=== PATIENT | female | born 1980 | race Hispanic/Latino ===

== ENCOUNTER 2020-03-06 13:12 | Emergency (ER) | payer OTHER, SELFPAY ==
[2020-03-06 13:21] VITALS: BP 116/77; PULSE 83; RESP 16; TEMP 36.4; O2SAT 100
--- NOTE | 2020-03-06 13:55 | ED.GENADULT ---
HPI - General Adult General Chief complaint: Eye Problems Stated complaint: Eye Pain Time Seen by Provider: 03/06/20 13:56 Source: patient and RN notes reviewed Mode of arrival: ambulatory Limitations: no limitations History of Present Illness HPI narrative: 39-year-old female presents with complains of right eye pain, photophobia, tearing, sensation of foreign body in right eye for 1 day. Anna reports that she slept in her contacts last night and symptoms increased throughout the day. Irrigated right eye without relief. Mild redness, clear drainage. Symptoms worsening. Exacerbating factor light. Relieving factors is closing eyes. Denies blurred vision, double vision, or pain of eye with movement. Wears contact lenses. Denies fever or chills. LMP unknown due to IUD in place. Remains active. The patient reports she have not been diagnosed with COVID-19. The patient reports she is not waiting for the results of a COVID-19 lab test. The patient reports she do not have fever, weakness, or fatigue. The patient reports she do not have a new or worsening cough or shortness of breath. Denies chest pain. The patient reports she do not have any rhinorrhea, congestion, sore throat, loss of taste, nausea, vomiting, abdominal pain, and diarrhea. Tolerating po intake well. Denies recent traveling. Denies concerns for COVID-19 or exposures been home with limited outdoor exposure except for essential household needs and return home. At this time, patient is not suspected of having COVID-19. Some parts of this dictation were generated by voice recognition software and may contain typographical and/or grammatical inaccuracies. Related Data Allergies Allergy/AdvReac Type Severity Reaction Status Date / Time No Known Allergies Allergy Verified 09/21/18 11:36 Review of Systems Review of Systems: Narrative: CONSTITUTIONAL: Denies fever, chills, sweats. EYES: Denies visual changes. Complains of RT eye redness and foreign body sensation, clear discharge. ENT: Denies rhinorrhea, congestion, sore throat, otalgia. CARDIOVASCULAR: Denies chest pain, palpitations, edema. RESPIRATORY: Denies dyspnea, wheezing, cough. GASTROINTESTINAL: Denies abdominal pain, nausea, vomiting, diarrhea. SKIN: Denies rash or itching. MUSCULOSKELETAL: Denies acute back pain, joint pain, or myalgia. NEUROLOGIC: Denies numbness or focal weakness. PSYCHIATRIC: Denies anxiety or depression. All systems reviewed & are unremarkable except as noted in HPI and below PMFSH Past Medical History Medical History (Updated 03/07/20 @ 00:00 by Thu Colon) Carpal tunnel syndrome Surgical History Surgical History (Updated 03/06/20 @ 14:04 by ASIF Goode) History of surgery on left wrist Due to carpal tunnel syndrome Family History Family History (Updated 03/06/20 @ 14:05 by ASIF Goode) Father Unknown family medical history Mother Hypertension Diabetes mellitus Social History Social History (Updated 03/06/20 @ 14:06 by ASIF Goode) Years smoked: 10 Smoking status: Light tobacco smoker Second hand tobacco smoke exposure: No Alcohol intake: current Substance use: never Living arrangements: with family Occupation/Education: other Additional occupation/education comments: Homemaker Gender identity (if verbalized by the patient): Female Sexual Orientation (if Verbalized by the Patient): Straight or Heterosexual Comments At time of signature, I have reviewed and agree with nursing past medical, surgical, social, and family history. Please see nursing chart for further information. There is no relevant family history pertinent to the presenting complaint. Exam Narrative: Exam Narrative: GENERAL: This is a well-nourished, well-developed patient, in no apparent distress. HEAD: normocephalic, atraumatic. EYES: PERRL. Sclera clear/white to LT eye only. RT eye sclera gladis and c
--- NOTE | 2020-03-06 14:06 | PC.NURSE ---
eye exam set up at bedside. eye chart done.
== END 2020-03-06 14:20 | disposition home or self-care (01) ==
PROVIDERS: Emergency Provider Nurse Practitioner Family; PCP Nurse Practitioner Family
DX: S05.01XA Injury of conjunctiva and corneal abrasion without foreign body, right eye, initial encounter (principal); X58.XXXA Exposure to other specified factors, initial encounter; F17.200 Nicotine dependence, unspecified, uncomplicated
CPT/HCPCS: 99213; A9270; G0463

== ENCOUNTER 2020-09-19 19:01 | Emergency (ER) | payer OTHER, SELFPAY ==
--- NOTE | 2020-09-19 10:34 | ECG_ITS ---
Measurements Intervals [place] Rate: 67 P: 24 GA: 135 QRS: -1 QRSD: 91 T: 7 QT: 407 QTc: 433 Interpretive Statements SINUS RHYTHM BORDERLINE T WAVE ABNORMALITY- ANT/INF LEADS BASELINE ARTIFACT- I, II, AVR, AVL, AVF BORDERLINE ECG Electronically Signed On 09-25-2020 11:40:54 CDT by William Hayes D.O.
[2020-09-19 19:17] VITALS: BP 146/102; PULSE 75; RESP 16; TEMP 36.1; O2SAT 99
--- NOTE | 2020-09-19 19:18 | ED.SOB ---
HPI - SOB/Dyspnea General Chief Complaint: Chest Pain Stated Complaint: High Blood Pressure,Chest Pain Time Seen by Provider: 09/19/20 19:18 Source: patient Mode of arrival: ambulatory Limitations: no limitations History of Present Illness HPI Narrative: Vikram Shane is a 40 yo female with a PMH of pre eclampsia who comes to [facility] complaining of chest pain-he told nurse she thought she was having a heart attack. 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 Now she is very verbal, not ill-appearing. Had Covid last July 2020. She has a primary care physician Related Data Allergies Allergy/AdvReac Type Severity Reaction Status Date / Time No Known Allergies Allergy Verified 09/19/20 19:18 Review of Systems Review of Systems: Narrative: CONSTITUTIONAL: Denies fever, chills, sweats. EYES: Denies visual changes, redness, discharge. ENT: Denies rhinorrhea, congestion, sore throat, otalgia. CARDIOVASCULAR: Has chest pain, no palpitations, edema. RESPIRATORY: Denies dyspnea, wheezing, cough GASTROINTESTINAL: Denies abdominal pain, nausea, vomiting, diarrhea. GENITOURINARY: Denies dysuria, hematuria, abnormal discharge SKIN: Denies rash or itching. NEUROLOGIC: Denies numbness, or focal weakness. PSYCHIATRIC: Denies anxiety or depression. [facility] Past Medical History Medical History Carpal tunnel syndrome Preeclampsia Surgical History Surgical History History of surgery on left wrist Due to carpal tunnel syndrome Family History Family History Father Unknown family medical history Mother Hypertension Diabetes mellitus Social History Social History (Updated 03/06/20 @ 14:06 by ASIF Goode) Years smoked: 10 Smoking status: Light tobacco smoker Second hand tobacco smoke exposure: No Alcohol intake: current Substance use: never Additional occupation/education comments: Homemaker Gender identity (if verbalized by the patient): Female Comments At time of signature, I agree with nursing past medical, surgical, social and family history. There is no relevant family history pertinent to the presenting complaint. Blood pressure is elevated today on at this visit with no known hypertension diagnosis Exam Narrative: Exam Narrative: GENERAL: This is a well-nourished, well-developed patient, in mild distress. HEAD: normocephalic, atraumatic. EYES: PERRL. Sclera clear/white. Vision is grossly intact. EARS: External ears normal, auditory canals clear and without drainage, TMs normal without perforation. Hearing grossly intact. NOSE: External nose normal without nasal discharge, nares without redness, no rhinorrhea. THROAT: Mucous membranes moist, posterior pharynx NECK: Neck supple, non-tender CARDIOVASCULAR: Regular rate and rhythm without murmurs, gallops, or rubs. States has chest pain that rated 3 out of 10; area of the left midsternal about 5 x 6 in area is not reproducible with direct pressure but with lifting arms posteriorly are going to the side she has tightness RESPIRATORY: Clear to auscultation. Breath sounds equal bilaterally. No wheezes, rales, or rhonchi. GASTROINTESTINAL: Abdomen soft, non-tender, SKIN: warm, intact with no suspicious lesions or rash, good texture and turgor. NEURO: awake, alert, and oriented to person, place and time. There were no obvious focal neurologic abnormalities. Steady gait EXTREMITIES: Normal range of motion. BACK: Nontender without deformity Course Course Emergency Course: Patient came here with chest discomfort
[2020-09-19 19:46] VITALS: BP 123/73
== END 2020-09-19 19:46 | disposition home or self-care (01) ==
PROVIDERS: Emergency Provider Nurse Practitioner; PCP Nurse Practitioner Family
DX: R07.89 Other chest pain (principal); F17.200 Nicotine dependence, unspecified, uncomplicated; Z86.16 Personal history of COVID-19
CPT/HCPCS: 93005; 99213; G0463

== ENCOUNTER 2020-10-28 12:39 | Outpatient (CLI) | payer OTHER, SELFPAY ==
--- NOTE | 2020-10-28 | ECHO_ITS ---
Patient Info Name: Vikram Shane Age: 40 years : 1980 Gender: Female Ht: 62 in Wt: 170 lbs BSA: 1.87 m2 HR: 69 bpm BP: 131 / 91 mmHg Heart Rhythm: Sinus Rhythm Exam Date: 10/28/2020 1:22 PM Exam Location: [facility] Pul[facility] Patient Status: Outpatient Admit Date: 10/28/2020 Staff Ordering Physician: Daniel, Yeimi RONQUILLO Sample Sewer: Harish Fraire, SHAILESH, RT Attending Provider: Daniel, Yeimi RONQUILLO Exam Type: CA echo doppler color flow Study Info Indications R07.9 - Chest pain, unspecified Complete two-dimensional, color flow and Doppler transthoracic echocardiogram is performed. Strain analysis performed. Summary 1. Complete two-dimensional, color flow and Doppler transthoracic echocardiogram is performed. 2. Strain analysis performed. 3. Global longitudinal strain is borderline at -16 %. 4. Left ventricular chamber dimension is normal. 5. Left ventricular systolic function is normal, estimated at 60-65%. 6. There is no increased left ventricular wall thickness. 7. The left ventricular diastolic function is normal. 8. There is mild mitral valve regurgitation. 9. There is mild tricuspid valve regurgitation. Left Ventricle Global longitudinal strain is borderline at -16 %. Left ventricular chamber dimension is normal. Left ventricular systolic function is normal, estimated at 60-65%. There is no increased left ventricular wall thickness. The left ventricular diastolic function is normal. Right Ventricle Right ventricular chamber dimension is normal. Right ventricular systolic function is normal. Left Atria Left atrial chamber dimension is normal. Right Atria Right atrial chamber dimension is normal. Atrial Septum Intact interatrial septum visualized by color flow imaging. Aortic Valve The aortic valve is probable trileaflet. There is no aortic valve sclerosis. There is no aortic valve stenosis. There is trace aortic valve regurgitation. Pulmonic Valve The pulmonic valve is normal. There is no pulmonic valve stenosis. There is trace pulmonic regurgitation. Mitral Valve The mitral valve has normal leaflets. There is no mitral valve stenosis. There is mild mitral valve regurgitation. Tricuspid Valve The tricuspid valve leaflets are normal. There is no significant tricuspid valve stenosis. There is mild tricuspid valve regurgitation. No pulmonary hypertension, estimated pulmonary arterial systolic pressure is 27 mmHg. Pericardium/Pleural The pericardium appears normal. There is no pericardial effusion. Inferior Vena Cava Normal inferior vena cava with <50% collapse upon inspiration consistent with elevated right atrial pressure, 10 mmHg. Aorta The aortic root size at the sinus of Valsalva is normal. The prox ascending aorta size is normal. Left Ventricular Outflow Tract Name Value Normal LVOT 2D LVOT Diameter 1.9 cm LVOT Doppler LVOT Peak Gradient 5 mmHg LVOT Mean Gradient 3 mmHg LVOT VTI 22 cm LVOT VTI/AV VTI Ratio 0.8
== END 2020-10-28 12:40 | disposition home or self-care (01) ==
PROVIDERS: PCP Nurse Practitioner Family; Visit Provider Nurse Practitioner Family
DX: R07.89 Other chest pain (principal); I36.1 Nonrheumatic tricuspid (valve) insufficiency; I34.0 Nonrheumatic mitral (valve) insufficiency
CPT/HCPCS: 93306

== ENCOUNTER 2022-10-13 16:13 | Emergency (ER) | payer OTHER, SELFPAY ==
[2022-10-13 16:20] VITALS: BP 128/81; PULSE 76; RESP 16; TEMP 36.9; O2SAT 100
--- NOTE | 2022-10-13 16:31 | ED.EAR ---
HPI - Ear Problem General Chief complaint: Ear Stated complaint: Left Ear Irritation Time Seen by Provider: 10/13/22 16:32 Source: patient Mode of arrival: ambulatory Limitations: no limitations History of Present Illness HPI Narrative: 42 y/o female presented for c/o left ear pressure and decreased hearing worsening over the past 2 days. Endorses tinnitus earlier today. States the ear feels full of water. She denies associated dizziness, ear drainage, nausea vomiting, fevers or chills. Not taking anything for symptoms. MD Complaint: ear pain Related Data Home Medications Medication Instructions Recorded Confirmed levonorgestrel 21 mcg/24 hours (8 1 device intrauterine ONCE 10/13/22 10/13/22 yrs) 52 mg intrauterine device (Mirena) Allergies Allergy/AdvReac Type Severity Reaction Status Date / Time No Known Allergies Allergy Verified 10/13/22 16:23 Review of Systems Review of Systems: CONSTITUTIONAL: Denies malaise, chills, or fever. EYES: Denies visual changes, redness, or discharge. ENT: Denies rhinorrhea, congestion, sinus pain, and sore throat. Reports ear pain CARDIOVASCULAR: Denies chest pain, palpitations, or edema. RESPIRATORY: Denies cough or dyspnea. GASTROINTESTINAL: Denies abdominal pain, nausea, vomiting, diarrhea SKIN: Denies rash or itching. MUSCULOSKELETAL: Denies myalgia. NEUROLOGIC: Denies headache. All systems reviewed & are unremarkable except as noted in HPI and below PMFSH Past Medical History Medical History Carpal tunnel syndrome Preeclampsia Surgical History Surgical History History of surgery on left wrist Due to carpal tunnel syndrome Family History Family History Father Unknown family medical history Mother Hypertension Diabetes mellitus Social History Social History Years smoked: 10 Smoking status: Light tobacco smoker Second hand tobacco smoke exposure: No Alcohol intake: current Substance use: never Living arrangements: with family Occupation/Education: other Additional occupation/education comments: Homemaker Gender identity (if verbalized by the patient): Female Sexual Orientation (if Verbalized by the Patient): Straight or Heterosexual Comments At time of signature, agree with nursing past medical, surgical, social and family history. There is no relevant family history pertinent to the presenting complaint Exam Narrative: GENERAL: Well-appearing, well-nourished, and in no acute distress. HEAD: Normocephalic EYES: PERRLA, conjunctivae clear ENT: Nares clear. Mucous membranes moist. Right TM pearly miguel with dull light reflex; left TM erythematous, purulent fluid no tragal tenderness. Oropharynx not erythematous without lesions. no drooling, no hoarseness, no trismus, uvula midline. NECK: Supple. No lymphadenopathy CHEST: Clear to auscultation, breath sounds equal. No wheezing, rhonchi, rales, or stridor. No respiratory distress, speaks in full sentences. HEART: Regular rate and rhythm. No murmur heard. SKIN: Warm, dry, no rash. NEURO: Alert and oriented x3. PSYCH: Normal mood and affect Course Course Emergency Course: Patient is aware of diagnosis, understands and agrees to treatment plan. Anticipatory guidance given. Patient agrees to follow-up as directed and is aware of reasons to seek care at the emergency department. Portions of this record may have been created with voice recognition software Level of Care: Express Care Visit Vital Signs Vital signs: Vital Signs Temperature 98.5 F 10/13/22 16:20 Pulse Rate 76 10/13/22 16:20 Respiratory Rate 16 10/13/22 16:20 Blood Pressure 128/81 10/13/22 16:20 Pulse Oximetry 100 10/13/22 16:20 Oxygen Delivery Room Air
== END 2022-10-13 16:40 | disposition home or self-care (01) ==
PROVIDERS: Emergency Provider Nurse Practitioner Family; PCP Nurse Practitioner Family
DX: H66.92 Otitis media, unspecified, left ear (principal)
CPT/HCPCS: 99213; G0463

== ENCOUNTER 2024-06-22 09:52 | Outpatient (CLI) | payer OTHER, SELFPAY ==
--- OUTSIDE RECORDS SUMMARY | 2024-06-22 10:32 | XMS_ITS | Clinical Summary ---
Author Organization [facility] Address [address] [place] [address] Care Team Providers Care Senior Logistics Manager Name Role Phone Unavailable Primary Care Provider Unavailabl e Social History Tobacco Use Types Packs/Day Years Used Date Smoking Tobacco: Never Assessed Comments Unknown Sex and Gender Information Value Date Recorded Sex Assigned at Not on file Legal Sex Female 8:29 AM CDT Gender Identity Not on file Sexual Orientation Not on file Plan of Treatment Health Maintenance Due Date Last Done Comments Hepatitis C Virus (HCV) Screening 1980 Hepatitis B Immunization (2 of 3 - 3-dose series) 01/26/1997 12/29/1996 Pap Smear 2002 Cervical Cancer Screening (CCS) 05/18/2011 HPV/Cotest 05/18/2011 Discussion re Starting/Frequency of Mammograms 2021 Influenza Immunization (#1) 2023 12/15/2016 SARS-COV-2 Immunization ( season) 2023 Respiratory Syncytial Virus (RSV) Immunization (Adult) (1 - 1-dose 75+ series) 2056 DTaP/Tdap/Td Immunization Discontinued 2016, 02/06/2009, 12/29/1996 TdaP Immunization Completed 08/14/2016, 02/06/2009 Meningococcal Immunization (ACWY) Aged Out No longer eligible based on patient's age to complete this topic Pneumococcal Immunization Combined Aged Out No longer eligible based on patient's age to complete this topic Rotavirus Immunization Aged Out No lo nger eligible based on patient's age to complete this topic
--- OUTSIDE RECORDS SUMMARY | 2024-06-22 10:32 | XMS_ITS | Encounter Summary ---
Author Organization [facility] Address [address] [place] [address] Phone Care Team Providers Care Sales Operations Name Role Phone Yeimi Sanchez NP Primary Care Provider [phone] Unknown, Notinfile Unavailable Unavailable Encounter Details Date Type Department Care Team (Late st Contact Info) Description 12/15/2020 Ophth Exam [facility] [address] [place] [address] 1st [place] [id number] Juan Manuel Ayers MD PhD [address] [place] [address] [facility] [place] [phone] [place] [address] Social History Tobacco Use Types Packs/Day Years Used Date Smoking Tobacco: Every Day Smokeless Tobacco: Current Alcohol Use Standard Drinks/Week Comments Not Currently 0 (1 standard drink = 0.6 oz pur e alcohol) Comments No Sex and Gender Information Value Date Recorded Sex Assigned at Not on file Legal Sex Female 8:09 PM SKEIN DYER Gender Identity Not on file Sexual Orientation Not on file documented as of this encounter Plan of Treatment Not on file documented as of this encounter Visit Diagnoses Not on filedocumented in this encounter Additional Health Concerns Infection Onset Date Last Indicated Resolved Time COVID: Suspected 04/13/2024 04/13/2024 04/14/2024 3:07 AM SKEIN DYER COVID: Suspected 05/11/2024 05/11/2024 05/11/2024 10:52 PM SKEIN DYER documented as of this encounter Eye Exam Visual Acuity Right eye Left eye Near sc CF 1' 20/20 Tonometry (Tonopen, 8:01 PM) Right eye Left eye Pressure 20 18 Pupils Dark Light Shape React APD Right eye 4 2 Round Brisk None Left eye 4 2 Round Brisk None Visual Farmer Right eye Left eye Restrictions Total superior tempo ral, inferior temporal, superior nasal, inferior nasal deficiencies Extraocular Movement Right eye Left eye Full Full External Exam Right eye Left eye External Normal Slit Lamp Exam Right eye Left eye Lids/Lashes reactive ptosis Normal Conjunctiva/Sclera 2+ injection White and ivonne et Cornea no epi defects, no s taining, stromal haze, single peripheral superficial infiltrate superonasally, MCE Clear Anterior Chamber hazy view but deep a nd appears quiet, no hypopyon Deep and quiet Iris Round and reactive Round and caro ctive Lens hazy view Clear Vitreous hazy view Normal Fundus Exam Right eye Left eye Disc no view Normal Macula Normal Vessels Normal Periphery Normal Care Teams Sales Operations Relationship Specialty Start Date End Date Yeimi Sanchez NP PCP - General 12/15/20 Unknown, Notinfile 12/15/20 documented as of this encounter
--- OUTSIDE RECORDS SUMMARY | 2024-06-22 10:33 | XMS_ITS | Clinical Summary ---
Author Organization [facility] al Address [address] [place] [address] Care Team Providers Care Quill Winder Name Role Phone Yeimi Sanchez NP Primary Care Provider [phone] Unknown, Notinfile Unavailable Unavailable Allergies No known active allergies Medications naproxen (NAPROSYN) 500 mg tablet Take 1 tablet (500 mg total) by mouth 2 (two) times a day Take with food. 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 No clear epi defect. Haze reduced in size since last visit, but not completely resolved. Rx'd Valtrex again 1g TID PO. Will call should have any side effects or issues obtaining. Will use Tobradex TID-QID right eye (OD). Educated on benefit of trying new contact lens brand, as there is extensive peripheral KNV. Currently is using King lenses. Will schedule f/u with cornea in coming weeks, sooner prn Assessment & Plan (12/26/2020 6:17 PM CDT): Initially presented in ER on 12/15/20 with central stromal haze, single peripheral infiltrate superonasally with no staining. AC with tr WBC. Thought to be CTL associated sterile infiltrate. Started on tobradex QID OD. Today has continued to have symptomatic improvement. Exam with roughly 1.5mm x 4 mm area of central stromal haze with 70%NST, no nuha edema. Superonasal 0.8mmx0.8mm superficial anterior stromal scar, no stain. Most likely represents contact lens keratopathy. Lower on ddx is herpetic interstitial keratitis, will obtain HSV/VZV PCR and cover with valtrex given significant central stromal haze and low side effect profile of valtrex. Plan: -Counseled patient to continue refraining from contact lens wear and to discard her contact lens case, solution, and lens and replace -HSV PCR ocular surface swab collected today -Start Valtrex 1 g TID. Can consider discontinuing at next visit, pending HSV/VZV PCR results and exam -Continue TD QID OD RTC 1-2 weeks Assessment & Plan (12/23/2020 5:07 PM CDT): -- no epi defects, no staining, stromal haze centrally, single peripheral superficial infiltrate superonasally with no staining. AC with trace white cell -- Likely contact-lens associated sterile infiltrate vs resolving prior ulcer -- continue Tobradex QID OD -- week of 12/23 for repeat anterior exam Encounters Date Type Department Care Team Description 05/12/2024 1:15 AM CREDIT PRODUCT ANALYST - 05/12/2024 4:59 AM [facility] Emergency [facility] Emergency Department [address] [place] [address] Phuong Molina MD Shortness of breath (Primary Dx); Palpitations; Chest pain, unspecified type Discharge Disposition: Discharge to home or self care 04/13/2024 7:48 PM CREDIT PRODUCT ANALYST - 04/14/2024 3:02 AM [facility] Emergency [address] [address] Discharge Disposition: Left without being seen from Last 3 Months Family History Medical History Relation Name Comments No Known Problems Father No Known Problems Mother Relation Name Status Comments Father Mother Social History Tobacco Use Types Packs/Day Years Used Date Smoking Tobacco: Every Day Smokeless Tobacco: Current Alcohol Use Standard Drinks/Week Comments Not Currently 0 (1 standard drink = 0.6 oz pur e alcohol) Personal Safety Answer Date Recorded Have you ever been in or are you currently in a harmful physical or emotional relationship or is someone making you feel afraid or unsafe? Denies 05/11/2024 Comments No Sex and Gender Information Value Date Recorded Sex Assigned at Not on file Legal Sex Female 8:09 PM CREDIT PRODUCT ANALYST Gender Identity Not on file Sexual Orientation Not on file Obstetrics History Last Filed Vital Signs Vital Sign Reading Time Taken Comments Blood Pressure 127/82 05/12/2024 2:25 AM CREDIT PRODUCT ANALYST Pulse 57 05/12/2024 2:25 AM CREDIT PRODUCT ANALYST Temperature 36.7 C (98 F) 05/11/2024 10:47 PM CREDIT PRODUCT ANALYST Respiratory Rate 16 05/12/2024 2:25 AM CREDIT PRODUCT ANALYST Oxygen Saturation 97% 05/12/2024 2:25 AM CREDIT PRODUCT ANALYST Inhaled Oxygen Concentration - - Weight 72.1 kg (159 lb) 05/11/2024 8:59 PM CREDIT PRODUCT ANALYST Height 158.8 cm (5' 2.5 ) 05/11/2024 8:59 PM CREDIT PRODUCT ANALYST Body Mass Index 28.62 05/11/2024 8:59 PM CREDIT PRODUCT ANALYST Plan of Treatment Health Maintenance Due Date Last Done Comments Breast Cancer Screening-Mammogram 1981 Cervical Cancer Screening 1981 Depression Screening 1981 Hepatitis C Screening 1981 Varicella Vaccines (1 of 2 - 13+ 2-dose series) 1994 Regular Well Visit/Exam 18-64 05/18/1999 Pneumococcal vaccine <65 (1 of 2 - PCV) 2000 Influenza Vaccine (Season Ended) 2024 12/15/2016 DTaP/Tdap/Td Vaccine (4 - Td or Tdap) 08/14/2026 08/14/2016, 02/06/2009, 12/29/1996 Hepatitis B Screening Completed 12/29/1996 HPV Vaccines Aged Out No longer eligi ble based on patient's age to complete this topic Procedures Procedure Name Priority Date/Time Associated Diagnosis Comments D-DIMER, QUANTITATIVE STAT 05/12/2024 3:37 AM CREDIT PRODUCT ANALYST TROPONIN I HIGH-SENSITIVITY 4-HOUR Timed 05/12/2024 1:16 AM CREDIT PRODUCT ANALYST ECG 12-LEAD STAT 05/11/2024 9:31 PM CREDIT PRODUCT ANALYST XR CHEST PA LATERAL 2 VIEWS ED 05/11/2024 9:22 PM CREDIT PRODUCT ANALYST EGFR STAT 05/11/2024 9:15 PM CREDIT PRODUCT ANALYST DIFFERENTIAL AUTO STAT 05/11/2024 9:1 5 PM CREDIT PRODUCT ANALYST TROPONIN I HIGH-SENSITIVITY SERIES (BASELINE, 2HR, 4HR, 6HR) STAT 05/11/2024 9:15 PM CREDIT PRODUCT ANALYST COMPREHENSIVE METABOLIC PANEL STAT 05/11/2024 9:15 PM CREDIT PRODUCT ANALYST CBC WITH AUTO DIFFERENTIAL STAT 05/11/2024 9:15 PM CREDIT PRODUCT ANALYST RESPIRATORY PATHOGEN PANEL STAT 05/11/2024 9:15 PM CREDIT PRODUCT ANALYST TROPONIN T HIGH-SENSITIVITY 2-HOUR Timed 04/13/2024 10:32 PM CREDIT PRODUCT ANALYST XR CHEST 1 VIEW ED 04/13/2024 8:55 PM CREDIT PRODUCT ANALYST URINALYSIS AND REFLEX TO MICROSCOPIC AND CULTURE STAT 04/13/2024 8:49 PM CREDIT PRODUCT ANALYST POCT HCG, URINE Routine 04/13/2024 8:48 PM CREDIT PRODUCT ANALYST ECG 12-LEAD STAT 04/13/2024 8:39 PM CREDIT PRODUCT ANALYST EGFR STAT 04/13/2024 8:33 PM CREDIT PRODUCT ANALYST DIFFERENTIAL AUTO STAT 04/13/2024 8:3 3 PM CREDIT PRODUCT ANALYST D-DIMER, QUANTITATIVE STAT 04/13/2024 8:33 PM CREDIT PRODUCT ANALYST TROPONIN T HIGH-SENSITIVITY SERIES (BASELINE, 2HR, 4HR, 6HR) STAT 04/13/2024 8:33 PM CREDIT PRODUCT ANALYST CBC WITH AUTO DIFFERENTIAL STAT 04/13/2024 8:33 PM CREDIT PRODUCT ANALYST COMPREHENSIVE METABOLIC PANEL STAT 04/13/2024 8:33 PM CREDIT PRODUCT ANALYST from Last 3 Months Results * D-dimer, quantitative (05/12/2024 3:37 AM CREDIT PRODUCT ANALYST) D-Dimer 411 <=499 ng/mL FEU Comment: Interpretive data FDA approved the D-dimer, in conjunction with a low or moderate pretest probability score, to exclude venous thromboembolic events (VTE) (PE and DVT) in outpatients when the D-dimer result is < 500 ng/ml FEU. Evidence supports using an age-adjusted D-dimer cut-off for outpatients older than 50 (age x 10) to improve specificity without sacrificing sensitivity. Example: age 68, VTE cut-off 680 ng/ml FEU. References; Schouten HT et al. Brit Med J. 2013;346:f2492. Claudia et al. Annals Int Med. 2015;163:701-11. Current interpretive data was last revised on 2019. Blood 05/12/2024 3:37 AM CREDIT PRODUCT ANALYST 05/12/2024 4:12 AM CREDIT PRODUCT ANALYST us Marie Larose MD LAB BLOOD ORDERABLES Damari to Result [facility] One [facility] [place] [address] * Troponin I high-sensitivity 4-hour (05/12/2024 1:16 AM CREDIT PRODUCT ANALYST) Pathologist [facility] Trop I hs <4 <=17 ng/L Comment: Interpretive Data For further hscTnI resources including the diagnostic algorithm and an aid in interpretation, copy and paste this link: https://bjhlab.testcatalog.org/show/hsTrop-1 Current Interpretive Data last revised 2019. Trop I hs delta 0 ng/L [facility] Trop I hs interp Insignificant [facility] Blood 05/12/2024 1:16 AM CREDIT PRODUCT ANALYST 05/12/2024 1:24 AM CREDIT PRODUCT ANALYST us Keith Mccoy MD LAB BLOOD ORDERABLES Final Resul t Performing Organization Address [facility] Co de Phone Number [facility] One [facility] [place] [address] * ECG 12-LEAD (05/11/2024 9:31 PM CREDIT PRODUCT ANALYST) Narrative [facility] - 05/11/2024 9:31 PM CREDIT PRODUCT ANALYST Keith Mccoy MD 05/11/2024 9:32 PM ECG 12 lead Date/Time: 05/11/2024 9:31 PM Performed by: Keith Mccoy MD Authorized by: Keith Mccoy MD Rate: ECG rate: 89 ECG rate assessment: normal Rhythm: Rhythm: sinus rhythm Ectopy: Ectopy: none QRS: QRS axis: Normal QRS intervals: Normal Conduction: Conduction: normal ST segments: ST segments: Normal T waves: T waves: inverted Inverted: V3 Interpretation: Interpretation: non-specific Recommended Follow-up: Recommended follow up: further workup in the ED Procedure Note Keith Mccoy MD - 05/11/2024 9:10 PM CST Procedure ECG 12 lead Date/Time: 05/11/2024 9:31 PM Performed by: Keith Mccoy MD Authorized by: Keith Mccoy MD Rate: ECG rate: 89 ECG rate assessment: normal Rhythm: Rhythm: sinus rhythm Ectopy: Ectopy: none QRS: QRS axis: Normal QRS intervals: Normal Conduction: Conduction: normal ST segments: ST segments: Normal T waves: T waves: inverted Inverted: V3 Interpretation: Interpretation: non-specific Recommended Follow-up: Recommended follow up: further workup in the ED Keith Mccoy MD 05/11/242131 us Phuong Molina MD ECG ORDERABLES Final Resul t Performing Organization Address [facility]/ZIP Co de Phone Number [facility] * XR Chest Pa Lateral 2 Views (05/11/2024 9:22 PM CREDIT PRODUCT ANALYST) Anatomical Region Laterality Modality Body, Chest N/A Computed Radiogr aphy 05/11/2024 9:27 PM CREDIT PRODUCT ANALYST Impressions 05/12/2024 7:25 PM CREDIT PRODUCT ANALYST Prescribed compare to 08/25/2024 No pneumothorax or pleural effusions. The cardiomediastinal silhouette is within limits of normal. Lungs are clear. Dictated by: Mary Jo Ahmadi MD The radiology attending physician has personally reviewed this study, and had reviewed and/or edited this written report and agrees with it. Electronically signed by: Mj Graham M.D. Narrative 05/12/2024 7:25 PM CREDIT PRODUCT ANALYST EXAMINATION: 2 view chest radiograph Procedure Note Mj Graham MD PhD - 05/12/2024 EXAMINATION: 2 view chest radiograph IMPRESSION: Prescribed compare to 08/25/2024 No pneumothorax or pleural effusions. The cardiomediastinal silhouette is within limits of normal. Lungs are clear. Dictated by: Mary Jo Ahmadi MD The radiology attending physician has personally reviewed this study, and had reviewed and/or edited this written report and agrees with it. Electronically signed by: Mj Graham M.D. us Phuong Molina MD IMG XR PROCEDURES Final Res ult * Troponin I high-sensitivity series (baseline, 2hr, 4hr, 6hr) (05/11/2024 9:15 PM CREDIT PRODUCT ANALYST) Trop I hs <4 <=17 ng/L Comment: Interpretive Data For further hscTnI resources including the diagnostic algorithm and an aid in interpretation, copy and paste this link: https://bjhlab.testcatalog.org/show/hsTrop-1 Current Interpretive Data last revised 2019. Blood 05/11/2024 9:15 PM CREDIT PRODUCT ANALYST 05/11/2024 9:26 PM CREDIT PRODUCT ANALYST us Phuong Molina MD LAB BLOOD ORDERABLES Final Result [facility] [place] [address] * eGFR (05/11/2024 9:15 PM CREDIT PRODUCT ANALYST) Pathologist [facility] eGFR >90 >=60 mL/min/1. 73 m2 Comment: Interpretive Data Reference Interval Normal >/= 90 mL/min/1.73m2 Mildly decreased* 60 - 89 mL/min/1.73m2 Mildly to moderately decreased 45 - 59 mL/min/1.73m2 Moderately to severely decreased 30 - 44 mL/min/1.73m2 Severely decreased 15 - 29 mL/min/1.73m2 Kidney Failure < 15 mL/min/1.73m2 *Relative to young adult level Estimated glomerular filtration rate is determined by the 2020 CKD-EPI equation recommended by the National Kidney Foundation (A Unifying Approach to GFR Estimation: Recommendations of the NKF-ASK Task Force on Reassessing the Inclusion of Race in Diagnosing Kidney Disease, JASN 2020). The CKD-EPI equation should not be used for patients with unstable renal function and has not been validated in children and those over 70. Current interpretive data was last reviewed 2021. Blood 05/11/2024 9:15 PM CREDIT PRODUCT ANALYST 05/11/2024 9:26 PM CREDIT PRODUCT ANALYST us Phuong Molina MD LAB BLOOD ORDERABLES Final Result [facility] Department [place] [address] * (ABNORMAL) Differential, auto (05/11/2024 9:15 PM CREDIT PRODUCT ANALYST) Pathologist [facility] Neutrophil abs 8.0(H) 1.5 - 6.5 K/cumm Imm gran abs 0.0 0.0 - 0.1 K/cumm [facility] Lymphocyte abs 0.5(L) 0.8 - 3.3 K/cumm [facility] Monocyte abs 0.1(L) 0.2 - 0.8 K/cumm [facility] Eosinophil abs 0.0 0.0 - 0.5 K/cumm [facility] Basophil abs 0.0 0.0 - 0.1 K/cumm [facility] Neutrophil pct 93.2 % [facility] Comment: Interpretive Data Percent cell count reference ranges are not reported, since discordance with absolute values may lead to misinterpretation of CBC data. Current Interpretive Data was last revised on 2017. Imm gran pct 0.3 % [facility] Comment: Interpretive Data Percent cell count reference ranges are not reported, since discordance with absolute values may lead to misinterpretation of CBC data. Current Interpretive Data was last revised on 2017. Lymphocyte pct 5.6 % [facility] Comment: Interpretive Data Percent cell count reference ranges are not reported, since discordance with absolute values may lead to misinterpretation of CBC data. Current Interpretive Data was last revised on 2017. Monocyte pct 0.8 % [facility] Comment: Interpretive Data Percent cell count reference ranges are not reported, since discordance with absolute values may lead to misinterpretation of CBC data. Current Interpretive Data was last revised on 2017. Eosinophil pct 0.0 % [facility] Comment: Interpretive Data Percent cell count reference ranges are not reported, since discordance with absolute values may lead to misinterpretation of CBC data. Current Interpretive Data was last revised on 2017. Basophil pct 0.1 % [facility] Comment: Interpretive Data Percent cell count reference ranges are not reported, since discordance with absolute values may lead to misinterpretation of CBC data. Current Interpretive Data was last revised on 2017. Blood 05/11/2024 9:15 PM CREDIT PRODUCT ANALYST 05/11/2024 9:26 PM CREDIT PRODUCT ANALYST us Phuong Molina MD LAB BLOOD ORDERABLES Final Result [facility] One [facility] Department [place] [address] * Respiratory pathogen panel Nasopharyngeal (05/11/2024 9:15 PM CREDIT PRODUCT ANALYST) Influenza A RNA Not Detected Not Detected Influenza B RNA Not Detected Not Detected [facility] RSV RNA Not Detected Not Detected [facility] COVID-19 RNA Not Detected Not Detected [facility] Coronavirus 229E RNA Not Detected Not Detected [facility] Coronavirus HKU1 RNA Not Detected Not Detected [facility] Coronavirus NL63 RNA Not Detected Not Detected [facility] Coronavirus OC43 RNA Not Detected Not Detected [facility] Adenovirus DNA Not Detected Not Detected [facility] Metapneumovirus RNA Not Detected Not Detected [facility] Rhinovirus/Enterov irus RNA Not Detected Not Detected [facility] Parainfluenza 1 RNA Not Detected Not Detected [facility] Parainfluenza 2 RNA Not Detected Not Detected [facility] Parainfluenza 3 RNA Not Detected Not Detected [facility] Parainfluenza 4 RNA Not Detected Not Detected [facility] B. pertussis DNA Not Detected Not Detected [facility] B. parapertussis DNA Not Detected Not Detected [facility] C. pneumoniae DNA Not Detected Not Detected [facility] M. pneumoniae DNA Not Detected Not Detected [facility] Nasopharyngeal 05/11/2024 9: 15 PM CREDIT PRODUCT ANALYST 05/11/2024 9:30 PM CREDIT PRODUCT ANALYST Narrative [facility] - 05/11/2024 10:51 PM CREDIT PRODUCT ANALYST Is the Patient experiencing symptoms consistent with COVID?->Yes Surveillance testing for transplant patient?->No Interpretive Data The [employer] FilmArray Respiratory Panel (RP2.1) assay is a multiplexed real-time PCR based nucleic acid test capable of simultaneous qualitative detection and identification of multiple respiratory viral and bacterial nucleic acids, including SARS Coronavirus 2 (the causative agent of COVID-19). The following bacteria, viruses and virus subtypes can be identified using the FilmArray RP2.1 assay: Bordetella pertussis, Bordetella parapertussis, Chlamydia pneumoniae, Mycoplasma pneumoniae, Adenovirus, SARS Coronavirus 2, seasonal coronaviruses (Coronavirus HKU1, Coronavirus NL63, Coronavirus 229E, and Coronavirus OC43), Influenza A, Influenza A subtype H1, Influenza A subtype H3, Influenza A subtype 2009 H1, Influenza B, Metapneumovirus, Parainfluenza 1, Parainfluenza 2, Parainfluenza 3, Parainfluenza 4, RSV, Rhinovirus/Enterovirus. Due to the genetic similarity between human Rhinovirus and Enterovirus, the FilmArray RP2.1 assay cannot reliably differentiate them. Coronavirus OC43 may cross-react with some isolates of Coronavirus HKU1. A dual positive result may be due to cross-reactivity or may indicate a co- infection. The detection and identification of specific viral and bacterial nucleic acids from individuals exhibiting signs and symptoms of a respiratory infection aids in the diagnosis of respiratory infection if used in conjunction with other clinical and epidemiological information. The results of this test should not be used as the sole basis for diagnosis, treatment, or other management decisions. Negative results in the setting of a respiratory illness may be due to infection with pathogens that are not detected by this test. Positive results do not rule out infection/co-infection with other organisms. The agent(s) detected by the FilmArray RP2.1 may not be the definite cause of disease. Additional testing (lab, imaging, etc.) may be necessary when evaluating a patient with possible respiratory tract infection. The FilmArray RP2.1 assay has FDA clearance for testing of DIN[employer]INEER swabs. The performance of additional specimen types has been assessed by the performing laboratory. The performance characteristics of this assay have been determined by [facility] Molecular Infectious Disease Laboratory. Current interpretive data was last revised on 21. us Phuong Molina MD LAB MICROBIOLOGY - GENERAL ORDERABLES Final Result [facility] One [facility] [place] [address] * CBC with auto differential (05/11/2024 9:15 PM CREDIT PRODUCT ANALYST) Pathologist [facility] WBC 8.6 3.8 - 9.9 K/cumm Hgb 14.2 11.9 - 15.5 g/dL [facility] Hct 41.9 35.6 - 45.5 % [facility] Plt 228 150 - 400 K/cumm [facility] MPV 11.2 9.1 - 12.3 fL [facility] RBC 4.74 3.90 - 5.20 M/cumm [facility] MCV 88.4 81.3 - 96.4 fL [facility] MCH 30.0 27.1 - 33.3 pg [facility] MCHC 33.9 32.3 - 35.7 g/dL [facility] RDW CV 12.1 11.1 - 14.9 % [facility] RDW SD 39.3 35.7 - 48.1 fL [facility] NRBC abs 0.00 0.00 - 0.01 K/cumm [facility] Blood Venous blood specimen / Unknown 05/11/2024 9:15 PM CREDIT PRODUCT ANALYST 05/11/2024 9:26 PM CREDIT PRODUCT ANALYST us Phuong Molina MD LAB BLOOD ORDERABLES Final Result [facility] One [facility] [place] [address] * (ABNORMAL) Comprehensive metabolic panel (05/11/2024 9:15 PM CREDIT PRODUCT ANALYST) Sodium 139 135 - 145 mmol/L Potassium, pl 3.9 3.3 - 4.9 mmol/L [facility] Chloride 103 97 - 110 mmol/L [facility] CO2 23 22 - 32 mmol/L [facility] Anion gap 13 2 - 15 mmol/L [facility] BUN 10 6 - 25 mg/dL [facility] Creatinine 0.64 0.60 - 1.10 mg/dL [facility] Glucose 175 70 - 199 mg/dL [facility] Comment: Interpretive Data Fasting glucose >/= 126 mg/dl is diagnostic for diabetes. Fasting is defined as no caloric intake for at least 8 hours. Fasting glucose between 100 mg/dl to 125 mg/dl is diagnostic of prediabetes. In a patient with classic symptoms of hyperglycemia or hyperglycemic crisis, a random glucose >/= 200 mg/dl is diagnostic for diabetes. In the absence of unequivocal hyperglycemia, results should be confirmed by repeat testing. The classification and Diagnosis of Diabetes Diabetes Care 202; 46: S19-S40. Current interpretive data was last revised 2022. Calcium 9.7 8.5 - 10.3 mg/dL [facility] Bilirubin, total 1.5(H) 0.1 - 1.2 mg/dL [facility] Protein, pl 8.5 6.5 - 8.5 g/dL [facility] Albumin 4.7 3.5 - 5.0 g/dL [facility] Alk phos 49 40 - 130 Units/L [facility] ALT 26 7 - 45 Units/L [facility] AST 26 10 - 45 Units/L [facility] Blood 05/11/2024 9:15 PM CREDIT PRODUCT ANALYST 05/11/2024 9:26 PM CREDIT PRODUCT ANALYST Phuong Molina MD LAB BLOOD ORDERABLES Final Result Performing Organization Address City/[facility]/ZIP Co de Phone Number [facility] [place] [address] * Troponin T high-sensitivity 2-hour (04/13/2024 10:32 PM CREDIT PRODUCT ANALYST) Trop T hs <6 <=14 ng/L Comment: Interpretive Data For further hscTnT resources including the diagnostic algorithm and an aid in interpretation, copy and paste this link: https://nrl.testcatalog.org/show/hsTrop Current Interpretive Data last revised 2020. Trop T hs delta 0 ng/L [facility] Trop T hs interp Insignificant [facility] Blood 04/13/2024 10:3 2 PM CREDIT PRODUCT ANALYST 04/13/2024 10:53 PM CREDIT PRODUCT ANALYST Shaan Parker MD LAB BLOOD ORDERABLES Fi nal Result Performing Organization Address City/[facility]/ZIP Co de Phone Number [facility] [address] [facility] Department [place] [address] * XR Chest 1 Vw Portable (if patient condition/safety warrant portable) (04/13/2024 8:55 PM CREDIT PRODUCT ANALYST) Anatomical Region Laterality Modality Body, Chest N/A Computed Radiogr aphy 04/13/2024 9:33 PM CREDIT PRODUCT ANALYST Narrative 04/13/2024 9:34 PM CREDIT PRODUCT ANALYST EXAM DESCRIPTION: XR CHEST 1 VIEW REASON FOR STUDY: Shortness of breath Pt states intermittent episodes of palpitations, SOB and dizziness this week. Pt noted the sx did not subside today. Pt denies CP. Pt walks with steady gait in triage. Pt denies any PMH. Pt reports I have just started exercising this week on the treadmill . Pt a/o x4. NAD. VSS. Pt placed in WC. TECHNIQUE: Single-view COMPARISON: 07/21/2020 FINDINGS: Central vascularity have normal caliber. Aortic arch well-defined on the left. Lungs are well expanded without consolidation, effusion or pneumothorax. Bony hypertrophic changes obscures the apices. IMPRESSION: No acute findings. THIS IS AN ELECTRONICALLY VERIFIED FINAL REPORT 04/13/2024 9:34 PM - Electronically signed by Pipe KIM T: Report ID: [id number] Reading Location: [id number] Procedure Note Pipe Espinosa MD - 04/13/2024 EXAM DESCRIPTION: XR CHEST 1 VIEW REASON FOR STUDY: Shortness of breath Pt states intermittent episodes of palpitations, SOB and dizziness thisweek. Pt noted the sx did not subside today. Pt denies CP. Pt walks withsteady gait in triage. Pt denies any PMH. Pt reports I have just started exercising this week on the treadmill . Pt a/o x4. NAD. VSS. Pt placedin WC. TECHNIQUE: Single-view COMPARISON: 07/21/2020 FINDINGS: Central vascularity have normal caliber. Aortic arch well-defined on theleft. Lungs are well expanded without consolidation, effusion or pneumothorax. Bony hypertrophic changes obscures the apices. IMPRESSION: No acute findings. THIS IS AN ELECTRONICALLY VERIFIED FINAL REPORT 04/13/2024 9:34 PM - Electronically signed by Pipe KIM T: Report ID: [id number] Reading Location: [id number] Shaan Parker MD IMG XR PROCEDURES Final Result * Urinalysis reflex to microscopic and culture Urine (04/13/2024 8:49 PM CREDIT PRODUCT ANALYST) Color, ur Straw Yellow Clarity, ur Clear Clear [facility] Specific gravity, ur 1.005 1.003 - 1.030 [facility] pH, urine 6.5 [facility] Comment: Interpretive Data U rine pH is affected by diet, medications, systemic acid-base disturbances, and renal tubular function. pH may affect urinary stone formation. For example, urine pH below 6.0 may help reduce the tendency for calcium phosphate stones and pH greater than 6.0 may reduce the tendency for uric acid stone formation. Source: [facility] Current Interpretive Data was last revised on 2017 Protein, ur ql Negative Negative [facility] Glucose, ur ql Negative Negative [facility] Ketones, ur Negative Negative [facility] Bilirubin, ur Negative Negative [facility] Blood, ur Negative Negative [facility] Urobilinogen, ur <2.0 <2.0 mg/dL [facility] Nitrite, ur Negative Negative [facility] Leukocyte esterase, ur Negative Negative [facility] UA reflex comment Reflex conditions for microscopic UA and culture not met. [facility] Urine 04/13/2024 8:49 PM CREDIT PRODUCT ANALYST 04/13/2024 8:51 PM CREDIT PRODUCT ANALYST Shaan Parker MD LAB MICROBIOLOGY - [facility] ORDERABLES Final Result [facility] [address] Department [place] [address] * POCT hCG, urine (04/13/2024 8:48 PM CREDIT PRODUCT ANALYST) [facility] HCG, ur, POC Negative Negative Lot Number [id number] QC Backgroud Clear Acceptable QC Control Line Acceptable Urine 04/13/2024 8:48 PM CREDIT PRODUCT ANALYST Shaan Parker MD POINT OF CARE TEST ORDE RABLES Final Result * ECG 12 lead (04/13/2024 8:39 PM CREDIT PRODUCT ANALYST) [facility] Ventricular Rate EKG/Min 87 BPM [facility] Atrial Rate 87 BPM [facility] AK-Interval (MSEC) 152 ms [facility] QRS-Interval (MSEC) 88 ms [facility] QT-Interval (MSEC) 388 ms [facility] QTc 466 ms [facility] P [place] 70 degrees [facility] R [place] -15 degrees [facility] T [place] 23 degrees [facility] Diagnosis Normal sinus rhythm Normal ECG No previous ECGs available Confirmed by SPRING AMARAL M.D. ([id number]) on 04/14/2024 8:51:10 PM [facility] 04/13/2024 8:39 PM CREDIT PRODUCT ANALYST 04/14/2024 8:51 PM CREDIT PRODUCT ANALYST Shaan Parker MD ECG ORDERABLES Final R esult Performing Organization Address [facility] Co de Phone Number [facility] * Troponin T high-sensitivity series (baseline, 2hr, 4hr, 6hr) (04/13/2024 8:33 PM CREDIT PRODUCT ANALYST) Trop T hs <6 <=14 ng/L Comment: Interpretive Data For further hscTnT resources including the diagnostic algorithm and an aid in interpretation, copy and paste this link: [email or web address].testcatalog.org/[email or web address] Current Interpretive Data last revised 2020. Blood 04/13/2024 8:33 PM CREDIT PRODUCT ANALYST 04/13/2024 8:38 PM CREDIT PRODUCT ANALYST Shaan Parker MD LAB BLOOD ORDERABLES Fi nal Result Performing Organization Address [facility] Co de Phone Number EMILY [address] Department [place] [address] * eGFR (04/13/2024 8:33 PM CREDIT PRODUCT ANALYST) eGFR >90 >=60 mL/min/1. 73 m2 Comment: Interpretive Data Reference Interval Normal >/= 90 mL/min/1.73m2 Mildly decreased* 60 - 89 mL/min/1.73m2 Mildly to moderately decreased 45 - 59 mL/min/1.73m2 Moderately to severely decreased 30 - 44 mL/min/1.73m2 Severely decreased 15 - 29 mL/min/1.73m2 Kidney Failure < 15 mL/min/1.73m2 *Relative to young adult level Estimated glomerular filtration rate is determined by the 2020 CKD-EPI equation recommended by the National Kid[employer] (A Unifying Approach to GFR Estimation: Recommendations of the NKF-ASK Task Force on Reassessing the Inclusion of Race in Diagnosing Kidney Disease, JASN 2020). The CKD-EPI equation should not be used for patients with unstable renal function and has not been validated in children and those over 70. Current interpretive data was last reviewed 2021. Blood 04/13/2024 8:33 PM CREDIT PRODUCT ANALYST 04/13/2024 8:38 PM CREDIT PRODUCT ANALYST us Shaan Parker MD LAB BLOOD ORDERABLES Fi nal Result [facility] [address] Department [place] [address] * (ABNORMAL) Differential, auto (04/13/2024 8:33 PM CREDIT PRODUCT ANALYST) Neutrophil abs 6.6(H) 1.5 - 6.5 K/cumm Imm gran abs 0.0 0.0 - 0.1 K/cumm [facility] Lymphocyte abs 1.4 0.8 - 3.3 K/cumm [facility] Monocyte abs 0.6 0.2 - 0.8 K/cumm [facility] Eosinophil abs 0.1 0.0 - 0.5 K/cumm [facility] Basophil abs 0.0 0.0 - 0.1 K/cumm [facility] Neutrophil pct 75.5 % [facility] Comment: Interpretive Data Percent cell count reference ranges are not reported, since discordance with absolute values may lead to misinterpretation of CBC data. Current Interpretive Data was last revised on 2017. Imm gran pct 0.2 % [facility] Comment: Interpretive Data Percent cell count reference ranges are not reported, since discordance with absolute values may lead to misinterpretation of CBC data. Current Interpretive Data was last revised on 2017. Lymphocyte pct 16.4 % [facility] Comment: Interpretive Data Percent cell count reference ranges are not reported, since discordance with absolute values may lead to misinterpretation of CBC data. Current Interpretive Data was last revised on 2017. Monocyte pct 6.8 % [facility] Comment: Interpretive Data Percent cell count reference ranges are not reported, since discordance with absolute values may lead to misinterpretation of CBC data. Current Interpretive Data was last revised on 2017. Eosinophil pct 0.9 % [facility] Comment: Interpretive Data Percent cell count reference ranges are not reported, since discordance with absolute values may lead to misinterpretation of CBC data. Current Interpretive Data was last revised on 2017. Basophil pct 0.2 % [facility] Comment: Interpretive Data Percent cell count reference ranges are not reported, since discordance with absolute values may lead to misinterpretation of CBC data. Current Interpretive Data was last revised on 2017. Blood 04/13/2024 8:33 PM CREDIT PRODUCT ANALYST 04/13/2024 8:38 PM CREDIT PRODUCT ANALYST us Shaan Parker MD LAB BLOOD ORDERABLES [facility] Result [facility] [address] Department [place] [address] * CBC with auto differential (04/13/2024 8:33 PM CREDIT PRODUCT ANALYST) WBC 8.7 3.8 - 9.9 K/cumm Hgb 13.9 11.9 - 15.5 g/dL [facility] Hct 41.1 35.6 - 45.5 % [facility] Plt 219 150 - 400 K/cumm [facility] MPV 11.0 9.1 - 12.3 fL [facility] RBC 4.52 3.90 - 5.20 M/cumm [facility] MCV 90.9 81.3 - 96.4 fL [facility] MCH 30.8 27.1 - 33.3 pg [facility] MCHC 33.8 32.3 - 35.7 g/dL [facility] RDW CV 12.5 11.1 - 14.9 % [facility] RDW SD 41.3 35.7 - 48.1 fL [facility] NRBC abs 0.00 0.00 - 0.01 K/cumm [facility] Blood 04/13/2024 8:33 PM CREDIT PRODUCT ANALYST 04/13/2024 8:38 PM CREDIT PRODUCT ANALYST Shaan Parker MD LAB BLOOD ORDERABLES Fi nal Result Performing Organization Address [facility] de Phone Number EMILY [address] [address] * D-dimer, quantitative (04/13/2024 8:33 PM CREDIT PRODUCT ANALYST) Pathologist [facility] D-Dimer <270 <=499 ng/mL FEU Comment: Interpretive data FDA approved the D-dimer, in conjunction with a low or moderate pretest probability score, to exclude venous thromboembolic events (VTE) (PE and DVT) in outpatients when the D-dimer result is < 500 ng/ml FEU. Evidence supports using an age-adjusted D-dimer cut-off for outpatients older than 50 (age x 10) to improve specificity without sacrificing sensitivity. Example: age 68, VTE cut-off 680 ng/ml FEU. References; Schrubia HT et al. Brit Med J. 2013;346:f2492. Claudia et al. Annals Int Med. 2015;163:701-11. Current interpretive data was last revised on 2019. Blood 04/13/2024 8:33 PM CREDIT PRODUCT ANALYST 04/13/2024 8:38 PM CREDIT PRODUCT ANALYST Yasmeen HOFFMANN LAB BLOOD ORDERABLES Final Resu lt Performing Organization Address [facility] Co de Phone Number [id number] [address] * Comprehensive metabolic panel (04/13/2024 8:33 PM CREDIT PRODUCT ANALYST) [facility] Sodium 139 135 - 145 mmol/L Potassium, pl 3.3 3.3 - 4.9 mmol/L [facility] Chloride 104 97 - 110 mmol/L [facility] CO2 26 22 - 32 mmol/L [facility] Anion gap 9 2 - 15 mmol/L [facility] BUN 11 6 - 25 mg/dL [facility] Creatinine 0.69 0.60 - 1.10 mg/dL [facility] Glucose 146 70 - 199 mg/dL [facility] Comment: Interpretive Data Fasting glucose >/= 126 mg/dl is diagnostic for diabetes. Fasting is defined as no caloric intake for at least 8 hours. Fasting glucose between 100 mg/dl to 125 mg/dl is diagnostic of prediabetes. In a patient with classic symptoms of hyperglycemia or hyperglycemic crisis, a random glucose >/= 200 mg/dl is diagnostic for diabetes. In the absence of unequivocal hyperglycemia, results should be confirmed by repeat testing. The classification and Diagnosis of Diabetes Diabetes Care 202; 46: S19-S40. Current interpretive data was last revised 2022. Calcium 9.4 8.5 - 10.3 mg/dL [facility] Bilirubin, total 0.9 0.1 - 1.2 mg/dL [facility] Protein, pl 8.1 6.5 - 8.5 g/dL [facility] Albumin 4.5 3.5 - 5.0 g/dL [facility] Alk phos 50 40 - 130 Units/L [facility] ALT 17 7 - 45 Units/L [facility] AST 25 10 - 45 Units/L [facility] Blood 04/13/2024 8:33 PM CREDIT PRODUCT ANALYST 04/13/2024 8:38 PM CREDIT PRODUCT ANALYST us Shaan Parker MD LAB BLOOD ORDERABLES Fi nal Result [facility] [address] Department [place] [address] from Last 3 Months Insurance [facility] Care Teams Quill Winder Relationship Specialty Start Date End Date Yeimi Sanchez NP PCP - General 12/15/20 Unknown, Notinfile 12/15/20
--- OUTSIDE RECORDS SUMMARY | 2024-06-22 10:33 | XMS_ITS | Referral Summary ---
Author Organization [facility] Address [address] [place] [address] Care Team Providers Care Lead Machinist Name Role Phone Yeimi Sanchez NP Primary Care Provider [phone] Unknown, Notinfile Unavailable Unavailable Encounters Date Type Department Care Team Description 05/12/2024 1:15 AM SHADOWGRAPH OPERATOR - 05/12/2024 4:59 AM [facility] Emergency [facility] Emergency Department [address] [place] [address] Phuong Molina MD Shortness of breath (Primary Dx); Palpitations; Chest pain, unspecified type Discharge Disposition: Discharge to home or self care 04/13/2024 7:48 PM SHADOWGRAPH OPERATOR - 04/14/2024 3:02 AM [facility] Emergency [address] [address] Discharge Disposition: Left without being seen from Last 3 Months Allergies No known active allergies Medications naproxen [...] eye Assessment & Plan (02/24/2021 3:25 PM SHADOWGRAPH OPERATOR): Mild haze remains with scattered punctate epithelial [...] week of 12/23 for repeat anterior exam Social History Tobacco Use Types Packs/Day Years [...] on file Legal Sex Female 8:09 PM SHADOWGRAPH OPERATOR Gender Identity Not on file Sexual Orientation Not on file Last Filed Vital Signs Vital Sign Reading Time Taken Comments Blood Pressure 127/82 05/12/2024 2:25 AM SHADOWGRAPH OPERATOR Pulse 57 05/12/2024 2:25 AM SHADOWGRAPH OPERATOR Temperature 36.7 C (98 F) 05/11/2024 10:47 PM SHADOWGRAPH OPERATOR Respiratory Rate 16 05/12/2024 2:25 AM SHADOWGRAPH OPERATOR Oxygen Saturation 97% 05/12/2024 2:25 AM SHADOWGRAPH OPERATOR Inhaled Oxygen Concentration - - Weight 72.1 kg (159 lb) 05/11/2024 8:59 PM SHADOWGRAPH OPERATOR Height 158.8 cm (5' 2.5 ) 05/11/2024 8:59 PM SHADOWGRAPH OPERATOR Body Mass Index 28.62 05/11/2024 8:59 PM SHADOWGRAPH OPERATOR Plan of Treatment Not on file Procedures Procedure Name Priority Date/Time Associated Diagnosis Comments D-DIMER, QUANTITATIVE STAT 05/12/2024 3:37 AM SHADOWGRAPH OPERATOR TROPONIN I HIGH-SENSITIVITY 4-HOUR Timed 05/12/2024 1:16 AM SHADOWGRAPH OPERATOR ECG 12-LEAD STAT 05/11/2024 9:31 PM SHADOWGRAPH OPERATOR XR CHEST PA LATERAL 2 VIEWS ED 05/11/2024 9:22 PM SHADOWGRAPH OPERATOR EGFR STAT 05/11/2024 9:15 PM SHADOWGRAPH OPERATOR DIFFERENTIAL AUTO STAT 05/11/2024 9:1 5 PM SHADOWGRAPH OPERATOR TROPONIN I HIGH-SENSITIVITY SERIES (BASELINE, 2HR, 4HR, 6HR) STAT 05/11/2024 9:15 PM SHADOWGRAPH OPERATOR COMPREHENSIVE METABOLIC PANEL STAT 05/11/2024 9:15 PM SHADOWGRAPH OPERATOR CBC WITH AUTO DIFFERENTIAL STAT 05/11/2024 9:15 PM SHADOWGRAPH OPERATOR RESPIRATORY PATHOGEN PANEL STAT 05/11/2024 9:15 PM SHADOWGRAPH OPERATOR TROPONIN T HIGH-SENSITIVITY 2-HOUR Timed 04/13/2024 10:32 PM SHADOWGRAPH OPERATOR XR CHEST 1 VIEW ED 04/13/2024 8:55 PM SHADOWGRAPH OPERATOR URINALYSIS AND REFLEX TO MICROSCOPIC AND CULTURE STAT 04/13/2024 8:49 PM SHADOWGRAPH OPERATOR POCT HCG, URINE Routine 04/13/2024 8:48 PM SHADOWGRAPH OPERATOR ECG 12-LEAD STAT 04/13/2024 8:39 PM SHADOWGRAPH OPERATOR EGFR STAT 04/13/2024 8:33 PM SHADOWGRAPH OPERATOR DIFFERENTIAL AUTO STAT 04/13/2024 8:3 3 PM SHADOWGRAPH OPERATOR D-DIMER, QUANTITATIVE STAT 04/13/2024 8:33 PM SHADOWGRAPH OPERATOR TROPONIN T HIGH-SENSITIVITY SERIES (BASELINE, 2HR, 4HR, 6HR) STAT 04/13/2024 8:33 PM SHADOWGRAPH OPERATOR CBC WITH AUTO DIFFERENTIAL STAT 04/13/2024 8:33 PM SHADOWGRAPH OPERATOR COMPREHENSIVE METABOLIC PANEL STAT 04/13/2024 8:33 PM SHADOWGRAPH OPERATOR from Last 3 Months Results * D-dimer, quantitative (05/12/2024 3:37 AM SHADOWGRAPH OPERATOR) D-Dimer 411 <=499 ng/mL FEU Comment: Interpretive [...] revised on 2019. Blood 05/12/2024 3:37 AM SHADOWGRAPH OPERATOR 05/12/2024 4:12 AM SHADOWGRAPH OPERATOR us Marie Larose MD LAB BLOOD ORDERABLES Damari l Result Performing Organization Address [facility]/RUST de Phone Number [facility] [place] [address] * Troponin I high-sensitivity 4-hour (05/12/2024 1:16 AM SHADOWGRAPH OPERATOR) Trop I hs <4 <=17 ng/L Comment: Interpretive Data For further hscTnI resources including the diagnostic algorithm and an aid in interpretation, copy and paste this link: https://bjhlab.testcatalog.org/show/hsTrop-1 Current Interpretive Data last revised 2019. Trop I hs delta 0 ng/L [facility] Trop I hs interp Insignificant [facility] Blood 05/12/2024 1:16 AM SHADOWGRAPH OPERATOR 05/12/2024 1:24 AM SHADOWGRAPH OPERATOR us Keith Mccoy MD LAB BLOOD ORDERABLES Final Resul t Performing Organization Address [facility] [[email or web address]] Co de Phone Number [facility] [place] [address] * ECG 12-LEAD (05/11/2024 9:31 PM SHADOWGRAPH OPERATOR) Narrative [facility] - 05/11/2024 9:31 PM SHADOWGRAPH OPERATOR Keith Mccoy MD 05/11/2024 9:32 PM ECG [...] Molina MD ECG ORDERABLES Final Resul t [facility] * XR Chest Pa Lateral 2 Views (05/11/2024 9:22 PM SHADOWGRAPH OPERATOR) Anatomical Region Laterality Modality Body, Chest N/A Computed Radiogr aphy 05/11/2024 9:27 PM SHADOWGRAPH OPERATOR Impressions 05/12/2024 7:25 PM SHADOWGRAPH OPERATOR Prescribed compare to 08/25/2024 No pneumothorax or pleural effusions. The cardiomediastinal silhouette is within limits of normal. Lungs are clear. Dictated by: Mary Jo Ahmadi MD The radiology attending physician has personally reviewed this study, and had reviewed and/or edited this written report and agrees with it. Electronically signed by: Mj Graham M.D. Narrative 05/12/2024 7:25 PM SHADOWGRAPH OPERATOR EXAMINATION: 2 view chest radiograph Procedure Note [...] (baseline, 2hr, 4hr, 6hr) (05/11/2024 9:15 PM SHADOWGRAPH OPERATOR) Pathologist [facility] Trop I hs <4 <=17 ng/L Comment: Interpretive Data For further hscTnI resources including the diagnostic algorithm and an aid in interpretation, copy and paste this link: https://bjhlab.testcatalog.org/show/hsTrop-1 Current Interpretive Data last revised 2019. Blood 05/11/2024 9:15 PM SHADOWGRAPH OPERATOR 05/11/2024 9:26 PM SHADOWGRAPH OPERATOR us Phuong Molina MD LAB BLOOD ORDERABLES Final Result [facility] [place] [address] * eGFR (05/11/2024 9:15 PM SHADOWGRAPH OPERATOR) Pathologist [facility] eGFR >90 >=60 mL/min/1. 73 m2 Comment: [...] of Race in Diagnosing Kidney Disease, JASN 202). The CKD-EPI equation should not be used for patients with unstable renal function and has not been validated in children and those over 70. Current interpretive data was last reviewed 2021. Blood 05/11/2024 9:15 PM SHADOWGRAPH OPERATOR 05/11/2024 9:26 PM SHADOWGRAPH OPERATOR us Phuong Molina MD LAB BLOOD ORDERABLES Final Result [facility] [place] [address] * (ABNORMAL) Differential, auto (05/11/2024 9:15 PM SHADOWGRAPH OPERATOR) Neutrophil abs 8.0(H) 1.5 - 6.5 K/cumm Imm gran abs 0.0 0.0 - 0.1 K/cumm [facility] Lymphocyte abs 0.5(L) 0.8 - 3.3 K/cumm [facility] Monocyte abs 0.1(L) 0.2 - 0.8 K/cumm [facility] Eosinophil abs 0.0 0.0 - 0.5 K/cumm [facility] Basophil abs 0.0 0.0 - 0.1 K/cumm [facility] Neutrophil pct 93.2 % [facility] Comment: Interpretive Data Percent cell count reference ranges are not reported, since discordance with absolute values may lead to misinterpretation of CBC data. Current Interpretive Data was last revised on 2017. Imm gran pct 0.3 % [facility] Comment: Interpretive Data Percent cell count reference ranges are not reported, since discordance with absolute values may lead to misinterpretation of CBC data. Current Interpretive Data was last revised on 2017. Lymphocyte pct 5.6 % [facility] Comment: Interpretive Data Percent cell count reference ranges are not reported, since discordance with absolute values may lead to misinterpretation of CBC data. Current Interpretive Data was last revised on 2017. Monocyte pct 0.8 % [facility] Comment: Interpretive Data Percent cell count reference ranges are not reported, since discordance with absolute values may lead to misinterpretation of CBC data. Current Interpretive Data was last revised on 2017. Eosinophil pct 0.0 % [facility] Comment: Interpretive Data Percent cell count reference ranges are not reported, since discordance with absolute values may lead to misinterpretation of CBC data. Current Interpretive Data was last revised on 2017. Basophil pct 0.1 % [facility] Comment: Interpretive Data Percent cell count reference ranges are not reported, since discordance with absolute values may lead to misinterpretation of CBC data. Current Interpretive Data was last revised on 2017. Blood 05/11/2024 9:15 PM SHADOWGRAPH OPERATOR 05/11/2024 9:26 PM SHADOWGRAPH OPERATOR us Phuong Molina MD LAB BLOOD ORDERABLES Final Result [facility] [place] [address] * Respiratory pathogen panel Nasopharyngeal (05/11/2024 9:15 PM SHADOWGRAPH OPERATOR) Pathologist [facility] Influenza A RNA Not Detected Not Detected Influenza B RNA Not Detected Not Detected [facility] RSV RNA Not Detected Not Detected [facility] COVID-19 RNA Not Detected Not Detected [facility] Coronavirus 229E RNA Not Detected Not Detected [facility] Coronavirus HKU1 RNA Not Detected Not Detected [facility] Coronavirus NL63 RNA Not Detected Not Detected [facility] Coronavirus OC43 RNA Not Detected Not Detected [facility] Adenovirus DNA Not Detected Not Detected [facility] Metapneumovirus RNA Not Detected Not Detected [facility] Rhinovirus/Enterov irus RNA Not Detected Not Detected [facility] Parainfluenza 1 RNA Not Detected Not Detected [facility] Parainfluenza 2 RNA Not Detected Not Detected [facility] Parainfluenza 3 RNA Not Detected Not Detected [facility] Parainfluenza 4 RNA Not Detected Not Detected [facility] B. pertussis DNA Not Detected Not Detected [facility] B. parapertussis DNA Not Detected Not Detected [facility] C. pneumoniae DNA Not Detected Not Detected [facility] M. pneumoniae DNA Not Detected Not Detected [facility] Nasopharyngeal 05/11/2024 9: 15 PM SHADOWGRAPH OPERATOR 05/11/2024 9:30 PM SHADOWGRAPH OPERATOR Narrative [facility] - 05/11/2024 10:51 PM SHADOWGRAPH OPERATOR Is the Patient experiencing symptoms consistent with COVID?->Yes Surveillance testing for transplant patient?->No Interpretive Data The Legal Egg FilmArray Respiratory Panel (RP2.1) assay is a [...] assay has FDA clearance for testing of [employer]ELOPER swabs. The performance of additional specimen types has been assessed by the performing laboratory. The performance characteristics of this assay have been determined by [facility] Molecular Infectious Disease Laboratory. Current interpretive data was last revised on 21. Phuong Molina MD LAB MICROBIOLOGY - GENERAL ORDERABLES Final Result Performing Organization Address City/[facility]/ZIP Co de Phone Number [facility] [place] [place] [address] * CBC with auto differential (05/11/2024 9:15 PM SHADOWGRAPH OPERATOR) WBC 8.6 3.8 - 9.9 K/cumm Hgb 14.2 11.9 - 15.5 g/dL [facility] Hct 41.9 35.6 - 45.5 % [facility] Plt 228 150 - 400 K/cumm [facility] MPV 11.2 9.1 - 12.3 fL [facility] RBC 4.74 3.90 - 5.20 M/cumm [facility] MCV 88.4 81.3 - 96.4 fL [facility] MCH 30.0 27.1 - 33.3 pg [facility] MCHC 33.9 32.3 - 35.7 g/dL [facility] RDW CV 12.1 11.1 - 14.9 % [facility] RDW SD 39.3 35.7 - 48.1 fL [facility] NRBC abs 0.00 0.00 - 0.01 K/cumm [facility] Blood Venous blood specimen / Unknown 05/11/2024 9:15 PM SHADOWGRAPH OPERATOR 05/11/2024 9:26 PM SHADOWGRAPH OPERATOR Phuong Molina MD LAB BLOOD ORDERABLES Final Result Performing Organization Address City/[facility]/ZIP Co de Phone Number [facility] [place] [address] * (ABNORMAL) Comprehensive metabolic panel (05/11/2024 9:15 PM SHADOWGRAPH OPERATOR) Pathologist [facility] Sodium 139 135 - 145 mmol/L Potassium, pl 3.9 3.3 - 4.9 mmol/L [facility] Chloride 103 97 - 110 mmol/L [facility] CO2 23 22 - 32 mmol/L [facility] Anion gap 13 2 - 15 mmol/L [facility] BUN 10 6 - 25 mg/dL [facility] Creatinine 0.64 0.60 - 1.10 mg/dL [facility] Glucose 175 70 - 199 mg/dL [facility] Comment: Interpretive Data Fasting glucose >/= [...] classification and Diagnosis of Diabetes Diabetes Care 2021; 46: S19-S40. Current interpretive data was last revised 2022. Calcium 9.7 8.5 - 10.3 mg/dL [facility] Bilirubin, total 1.5(H) 0.1 - 1.2 mg/dL [facility] Protein, pl 8.5 6.5 - 8.5 g/dL [facility] Albumin 4.7 3.5 - 5.0 g/dL [facility] Alk phos 49 40 - 130 Units/L [facility] ALT 26 7 - 45 Units/L [facility] AST 26 10 - 45 Units/L [facility] Blood 05/11/2024 9:15 PM SHADOWGRAPH OPERATOR 05/11/2024 9:26 PM SHADOWGRAPH OPERATOR us Phuong Molina MD LAB BLOOD ORDERABLES Final Result [facility] Department [place] [address] * Troponin T high-sensitivity 2-hour (04/13/2024 10:32 PM SHADOWGRAPH OPERATOR) Trop T hs <6 <=14 ng/L Comment: Interpretive Data For further hscTnT resources including the diagnostic algorithm and an aid in interpretation, copy and paste this link: https://nrl.testcatalog.org/show/hsTrop Current Interpretive Data last revised 2020. Trop T hs delta 0 ng/L [facility] Trop T hs interp Insignificant [facility] Blood 04/13/2024 10:3 2 PM SHADOWGRAPH OPERATOR 04/13/2024 10:53 PM SHADOWGRAPH OPERATOR us Shaan Parker MD LAB BLOOD ORDERABLES Fi nal Result [facility] [address] [facility] Department [place] [address] * XR Chest 1 Vw Portable (if patient condition/safety warrant portable) (04/13/2024 8:55 PM SHADOWGRAPH OPERATOR) Anatomical Region Laterality Modality Body, Chest N/A Computed Radiogr aphy 04/13/2024 9:33 PM SHADOWGRAPH OPERATOR Narrative 04/13/2024 9:34 PM SHADOWGRAPH OPERATOR EXAM DESCRIPTION: XR CHEST 1 VIEW REASON [...] 9:34 PM - Electronically signed by Pipe Espinosa M.D. RB T: Report ID: [id number] Reading Location: [id number] Procedure Note Pipe Espinosa MD - 04/13/2024 [...] 9:34 PM - Electronically signed by Pipe Espinosa M.D. T: Report ID: [id number] Reading Location: [place] [address] Shaan Parker MD IMG XR PROCEDURES Final Result * Urinalysis reflex to microscopic and culture Urine (04/13/2024 8:49 PM SHADOWGRAPH OPERATOR) Color, ur Straw Yellow Clarity, ur Clear Clear [facility] Specific gravity, ur 1.005 1.003 - 1.030 [facility] pH, urine 6.5 [facility] Comment: Interpretive Data U rine pH is affected by diet, medications, systemic acid-base disturbances, and renal tubular function. pH may affect urinary stone formation. For example, urine pH below 6.0 may help reduce the tendency for calcium phosphate stones and pH greater than 6.0 may reduce the tendency for uric acid stone formation. Source: [place] [employer] Current Interpretive Data was last revised on 2017 Protein, ur ql Negative Negative [facility] Glucose, ur ql Negative Negative [facility] Ketones, ur Negative Negative [facility] Bilirubin, ur Negative Negative [facility] Blood, ur Negative Negative [facility] Urobilinogen, ur <2.0 <2.0 mg/dL [facility] Nitrite, ur Negative Negative [facility] Leukocyte esterase, ur Negative Negative [facility] UA reflex comment Reflex conditions for microscopic UA and culture not met. [facility] Urine 04/13/2024 8:49 PM SHADOWGRAPH OPERATOR 04/13/2024 8:51 PM SHADOWGRAPH OPERATOR Shaan Parker MD LAB MICROBIOLOGY - GENE RAL ORDERABLES Final Result Performing Organization Address [facility]/ZIP Co de Phone Number [facility] [address] [facility] Department [place] [address] * POCT hCG, urine (04/13/2024 8:48 PM SHADOWGRAPH OPERATOR) HCG, ur, POC Negative Negative Lot Number [id number] QC Backgroud Clear Acceptable QC Control Line Acceptable Urine 04/13/2024 8:48 PM SHADOWGRAPH OPERATOR Result [facility] Shaan Parker MD POINT OF CARE TEST ORDE RABLES Final Result * ECG 12 lead (04/13/2024 8:39 PM SHADOWGRAPH OPERATOR) Ventricular Rate EKG/Min 87 BPM [facility] Atrial Rate 87 BPM [facility] DE-Interval (MSEC) 152 ms [facility] QRS-Interval (MSEC) 88 ms [facility] QT-Interval (MSEC) 388 ms [facility] QTc 466 ms [facility] P [place] 70 degrees [facility] R [place] -15 degrees [facility] T [place] 23 degrees [facility] Diagnosis Normal sinus rhythm Normal ECG No previous ECGs available Confirmed by SPRING AMARAL M.D. ([id number]) on 04/14/2024 8:51:10 PM [facility] 04/13/2024 8:39 PM SHADOWGRAPH OPERATOR 04/14/2024 8:51 PM SHADOWGRAPH OPERATOR Result [facility] Shaan Parker MD ECG ORDERABLES Final R esult Performing Organization Address City/[facility]/ZIP Co de Phone Number [facility] * Troponin T high-sensitivity series (baseline, 2hr, 4hr, 6hr) (04/13/2024 8:33 PM SHADOWGRAPH OPERATOR) Trop T hs <6 <=14 ng/L Comment: Interpretive Data For further hscTnT resources including the diagnostic algorithm and an aid in interpretation, copy and paste this link: https://nrl.testcatalog.org/show/hsTrop Current Interpretive Data last revised 2020. Blood 04/13/2024 8:33 PM SHADOWGRAPH OPERATOR 04/13/2024 8:38 PM SHADOWGRAPH OPERATOR Shaan Parker MD LAB BLOOD ORDERABLES Fi nal Result Performing Organization Address [facility] [[email or web address]] Co de Phone Number [facility] [address] [place] [address] * eGFR (04/13/2024 8:33 PM SHADOWGRAPH OPERATOR) eGFR >90 >=60 mL/min/1. 73 m2 Comment: [...] last reviewed 2021. Blood 04/13/2024 8:33 PM SHADOWGRAPH OPERATOR 04/13/2024 8:38 PM SHADOWGRAPH OPERATOR Shaan Parker MD LAB BLOOD ORDERABLES Fi nal Result Performing Organization Address City/[facility]/ZIP Co de Phone Number [facility] [address] Department [place] [address] * (ABNORMAL) Differential, auto (04/13/2024 8:33 PM SHADOWGRAPH OPERATOR) Neutrophil abs 6.6(H) 1.5 - 6.5 K/cumm Imm gran abs 0.0 0.0 - 0.1 K/cumm [facility] Lymphocyte abs 1.4 0.8 - 3.3 K/cumm [facility] Monocyte abs 0.6 0.2 - 0.8 K/cumm [facility] Eosinophil abs 0.1 0.0 - 0.5 K/cumm [facility] Basophil abs 0.0 0.0 - 0.1 K/cumm [facility] Neutrophil pct 75.5 % [facility] Comment: Interpretive Data Percent cell count reference ranges are not reported, since discordance with absolute values may lead to misinterpretation of CBC data. Current Interpretive Data was last revised on 2017. Imm gran pct 0.2 % [facility] Comment: Interpretive Data Percent cell count reference ranges are not reported, since discordance with absolute values may lead to misinterpretation of CBC data. Current Interpretive Data was last revised on 2017. Lymphocyte pct 16.4 % [facility] Comment: Interpretive Data Percent cell count reference ranges are not reported, since discordance with absolute values may lead to misinterpretation of CBC data. Current Interpretive Data was last revised on 2017. Monocyte pct 6.8 % [facility] Comment: Interpretive Data Percent cell count reference ranges are not reported, since discordance with absolute values may lead to misinterpretation of CBC data. Current Interpretive Data was last revised on 2017. Eosinophil pct 0.9 % [facility] Comment: Interpretive Data Percent cell count reference ranges are not reported, since discordance with absolute values may lead to misinterpretation of CBC data. Current Interpretive Data was last revised on 2017. Basophil pct 0.2 % [facility] Comment: Interpretive Data Percent cell count reference ranges are not reported, since discordance with absolute values may lead to misinterpretation of CBC data. Current Interpretive Data was last revised on 2017. Blood 04/13/2024 8:33 PM SHADOWGRAPH OPERATOR 04/13/2024 8:38 PM SHADOWGRAPH OPERATOR Shaan Parker MD LAB BLOOD ORDERABLES nal Result Performing Organization Address [facility]/[place]UST de Phone Number [facility] [address] [address] * CBC with auto differential (04/13/2024 8:33 PM SHADOWGRAPH OPERATOR) [facility] WBC 8.7 3.8 - 9.9 K/cumm Hgb 13.9 11.9 - 15.5 g/dL [facility] Hct 41.1 35.6 - 45.5 % [facility] Plt 219 150 - 400 K/cumm [facility] MPV 11.0 9.1 - 12.3 fL [facility] RBC 4.52 3.90 - 5.20 M/cumm [facility] MCV 90.9 81.3 - 96.4 fL [facility] MCH 30.8 27.1 - 33.3 pg [facility] MCHC 33.8 32.3 - 35.7 g/dL [facility] RDW CV 12.5 11.1 - 14.9 % [facility] RDW SD 41.3 35.7 - 48.1 fL [facility] NRBC abs 0.00 0.00 - 0.01 K/cumm [facility] Blood 04/13/2024 8:33 PM SHADOWGRAPH OPERATOR 04/13/2024 8:38 PM SHADOWGRAPH OPERATOR Shaan Parker MD LAB BLOOD ORDERABLES Fi nal Result Performing Organization Address [facility]/[place]UST de Phone Number [facility] [address] [place] [address] * D-dimer, quantitative (04/13/2024 8:33 PM SHADOWGRAPH OPERATOR) [facility] D-Dimer <270 <=499 ng/mL FEU Comment: Interpretive [...] et al. Brit Med J. 2013;346:f2492. Claudia SIDDIQUI et al. Annals Int Med. 2015;163:701-11. Current interpretive data was last revised on 2019. Blood 04/13/2024 8:33 PM SHADOWGRAPH OPERATOR 04/13/2024 8:38 PM SHADOWGRAPH OPERATOR us Yasmeen HOFFMANN LAB BLOOD ORDERABLES Final Resu lt [place] [id number] [facility] [facility] [place] [address] * Comprehensive metabolic panel (04/13/2024 8:33 PM SHADOWGRAPH OPERATOR) Pathologist [facility] Sodium 139 135 - 145 mmol/L Potassium, pl 3.3 3.3 - 4.9 mmol/L [facility] Chloride 104 97 - 110 mmol/L [facility] CO2 26 22 - 32 mmol/L [facility] Anion gap 9 2 - 15 mmol/L [facility] BUN 11 6 - 25 mg/dL [facility] Creatinine 0.69 0.60 - 1.10 mg/dL [facility] Glucose 146 70 - 199 mg/dL [facility] Comment: Interpretive Data Fasting glucose >/= [...] 2022. Calcium 9.4 8.5 - 10.3 mg/dL [facility] Bilirubin, total 0.9 0.1 - 1.2 mg/dL [facility] Protein, pl 8.1 6.5 - 8.5 g/dL [facility] Albumin 4.5 3.5 - 5.0 g/dL [facility] Alk phos 50 40 - 130 Units/L [facility] ALT 17 7 - 45 Units/L [facility] AST 25 10 - 45 Units/L [facility] Blood 04/13/2024 8:33 PM SHADOWGRAPH OPERATOR 04/13/2024 8:38 PM SHADOWGRAPH OPERATOR us Shaan Parker MD LAB BLOOD ORDERABLES nal Result EMILY [address] [facility] [place] [address] from Last [address] [place] [address] Care Teams Lead Machinist Relationship Specialty Start Date End Date Yeimi Sanchez NP PCP - General 12/15/20 Unknown, Notinfile 12/15/20
--- OUTSIDE RECORDS SUMMARY | 2024-06-22 10:33 | XMS_ITS | Clinical Summary ---
Author Organization [facility] Address [address] [place] [id number] Care Team Providers Care Dancer Or Choreographer Name Role Phone Yeimi Sanchez Fani DEPUTY CHIEF SHERIFF Primary Care Provider Encounters Date Type Department Care Team Description 05/09/2024 Telephone [facility], [address] [id number] Mahogany Terrell, RMA Appointment Request (Self ref) from Last 3 Months Social History Tobacco Use Types Packs/Day Years Used Date Smoking Tobacco: Never Assessed Comments Unknown Sex and Gender Information Value Date Recorded Sex Assigned at Not on file Legal Sex Female 10:49 AM SECOND CRUSHER Gender Identity Not on file Sexual Orientation Not on file Plan of Treatment Health Maintenance Due Date Last Done Comments Cervical Cancer Screening Pa p Smear (Age 30 to 64) Every 3 Years 1981 Annual Physical 1984 Hepatitis C 05/18/1999 DTaP, Tdap and Td Vaccines ( 1 - Tdap) 2000 Hepatitis B Vaccines (1 of 3 - 19+ 3-dose series) 2000 Cervical Cancer Screening Pa p with HPV Testing (Age 30 to 64) Every 5 Years 05/18/2011 Cervical Cancer Screening with HPV 05/18/2011 Mammogram Screening 2021 COVID-19 Vaccine (2023-2 5 season) 2023 HPV Vaccines Aged Out No longer eligi ble based on patient's age to complete this topic Meningococcal B Vaccine Aged Out No l onger eligible based on patient's age to complete this topic Meningococcal Vaccine Aged Out No sandra katie eligible based on patient's age to complete this topic Pneumococcal Vaccine: Pediat rics (0 to 5 Years) and At-Risk Patients (6 to 49 Years) Aged Out No longer eligible b ased on patient's age to complete this topic RSV Immunizations Under 20 Months Aged Out No longer eligible based on patient's age to complete this topic Care Teams Dancer Or Choreographer Relationship Specialty Start Date End Date Yeimi Sanchez, DEPUTY CHIEF SHERIFF [address] [place] [id number] PCP - General NURSE PRACTITIONER 05/09/24
--- NOTE | 2024-07-06 11:56 | WPDHOLTEREM ---
Holter/Event Monitor Holter/Event Monitor Date of procedure: 06/22/24 Holter/Event Procedure: 3-7 Day Holter Monitor Indications: Tachycardia Conclusion: 1. 4 days holter monitor on 06/22/24. 2. Underlying rhythm is sinus rhythm. HR range 48-149 bpm; average HR 78 bpm. 3. There are rare premature supraventricular complexes and rare supraventricular couplets. No supraventricular tachycardia. 4. No premature ventricular complexes. No ventricular tachycardia. 5. No significant pauses greater than 3 seconds. 6. Patient reports 15 episodes of symptoms of chest pain, stabbing pain, fluttering/racing, lightheadedness, shortness of breath which demonstrate sinus rhythm, HR range 76-102 bpm.
== END 2024-06-22 09:53 | disposition home or self-care (01) ==
PROVIDERS: Visit Provider Nurse Practitioner Family
DX: I49.1 Atrial premature depolarization (principal); R07.89 Other chest pain; R00.0 Tachycardia, unspecified
CPT/HCPCS: 93242